=== PATIENT | male | born 1960 | race Caucasian/White ===

== ENCOUNTER 2021-10-21 17:19 | Inpatient (IN) ==
[2021-10-21 19:21] LABS: Basophils % 0.4 %; Eosinophils # 0.2 K/mcL (0.0-0.6); Eosinophils % 1.6 %; Hematocrit 38.4 % (37.5-50.1); Hemoglobin 12.4 g/dL (12.9-16.9); Immature Granulocytes % 0.4 % (0-4); Lymphocytes # 1.2 K/mcL (0.6-4.6); Lymphocytes % 13.1 %; Mean Corpuscular HGB Conc 32.3 g/dL (31.6-35.5); Mean Corpuscular Hemoglobin 32.6 pg (28.0-33.3); Mean Corpuscular Volume 101.1 fL (83.0-100.0); Mean Platelet Volume 9.1 fL (9.4-12.4); Monocytes # 0.7 K/mcL (0.0-1.3); Monocytes % 7.2 %; Neutrophils # 7.1 K/mcL (1.6-8.9); Platelet Count 408 K/mcL (140-400); Red Cell Distribution Width 13.2 % (11.5-14.5); Segmented Neutrophils % 77.3 %; White Blood Count 9.2 K/mcL (4.3-11.1)
[2021-10-21 19:54] LABS: Albumin 4.4 g/dL (3.5-5.7); Albumin/Globulin Ratio 1.4 (1.1-2.2); Bilirubin,Total 0.2 mg/dL (0.3-1.0); Calcium 9.5 mg/dL (8.6-10.3); Globulin 3.2 g/dL (2.4-3.5); Magnesium 2.6 mg/dL (1.6-2.6); Total Protein 7.6 g/dL (6.4-8.9)
[2021-10-21] MEDS ORDERED: 0.9 % Sodium Chloride 1,000 ML IVC ONE (20:15)
[2021-10-21] MEDS ORDERED: Insulin Human Regular 10 UNIT in 0.9 % Sodium Chloride 10 ML IV ONE (20:15)
[2021-10-21] MEDS ORDERED: *HR* Dextrose 50 % in Water (Syg) 50 ML SYRINGE IVP ONE (20:15)
[2021-10-21] MEDS ORDERED: Calcium Gluconate 1,000 MG/10 ML VIAL IVP ONE (20:17)
[2021-10-21 20:33] LABS: Bilirubin,Urine Negative (Negative); Blood,Urine Negative (Negative); Clarity,Urine Clear (Clear); Color,Urine Colorless (Yellow); Glucose,Urine (UA) Normal (Normal); Ketones,Urine Negative (Negative); Leukocyte Esterase,Urine Negative (Negative); Nitrite,Urine Negative (Negative); PH,Urine 5.5 pH Units (5.0-8.0); Protein,Urine Trace mg/dL (Neg-Trace); Specific Gravity,Urine 1.016 (1.010-1.025); Urobilinogen,Urine Normal (Normal)
[2021-10-21] MEDS ORDERED: Insulin LISPRO 300 UNITS/3 ML VIAL SUBQ ONE (21:17)
[2021-10-22] MEDS ORDERED: Naloxone 0.4 MG/ML INJ IVP PRN (00:15)
[2021-10-22] MEDS ORDERED: Acetaminophen 325 MG TABLET PO PRN (00:15)
[2021-10-22] MEDS ORDERED: Ondansetron 4 MG/2 ML VIAL IVP PRN (00:15)
[2021-10-22] MEDS ORDERED: 0.9 % Sodium Chloride 1,000 ML IVC ONE ×2 (01:02→03:32)
[2021-10-22 01:48] LABS: Calcium 9.4 mg/dL (8.6-10.3); Potassium 5.2 mEq/L (3.5-5.1)
[2021-10-22 02:48] LABS: Amphetamine Screen,Urine Negative ng/mL (Cutoff=1000); Barbiturate Screen,Urine Negative ng/mL (Cutoff=200); Benzodiazepines Screen,Urine Negative ng/mL (Cutoff=200); Cannabinoid Screen,Urine Positive ng/mL (Cutoff = 50); Cocaine Screen,Urine Negative ng/mL (Cutoff= 300); Opiate Screen,Urine Negative ng/mL (Cutoff=300); Phencyclidine Screen,Urine Negative ng/mL (Cutoff=25)
[2021-10-22] MEDS ORDERED: Nicotine 21 MG PATCH.TD24 TD PRN (03:35)
[2021-10-22 07:24] LABS: Basophils # 0.1 K/mcL (0.0-0.2); Basophils % 0.6 %; Eosinophils # 0.2 K/mcL (0.0-0.6); Eosinophils % 1.8 %; Hematocrit 33.3 % (37.5-50.1); Hemoglobin 10.7 g/dL (12.9-16.9); Immature Granulocytes % 0.5 % (0-4); Lymphocytes # 1.6 K/mcL (0.6-4.6); Lymphocytes % 18.1 %; Mean Corpuscular HGB Conc 32.1 g/dL (31.6-35.5); Mean Corpuscular Hemoglobin 32.5 pg (28.0-33.3); Mean Corpuscular Volume 101.2 fL (83.0-100.0); Mean Platelet Volume 8.8 fL (9.4-12.4); Monocytes # 0.7 K/mcL (0.0-1.3); Monocytes % 7.9 %; Neutrophils # 6.1 K/mcL (1.6-8.9); Platelet Count 346 K/mcL (140-400); Red Blood Count 3.29 M/mcL (4.19-5.50); Red Cell Distribution Width 13.1 % (11.5-14.5); Segmented Neutrophils % 71.1 %; White Blood Count 8.6 K/mcL (4.3-11.1)
[2021-10-22 07:31] LABS: INR 1.1; Prothrombin Time 11.8 Seconds (9.4-12.1)
[2021-10-22 07:58] LABS: Albumin 3.6 g/dL (3.5-5.7); Albumin/Globulin Ratio 1.5 (1.1-2.2); Bilirubin,Total 0.3 mg/dL (0.3-1.0); Calcium 8.9 mg/dL (8.6-10.3); Globulin 2.4 g/dL (2.4-3.5); Phosphorous 4.8 mg/dL (2.7-4.5); Potassium 5.6 mEq/L (3.5-5.1)
[2021-10-22] MEDS ORDERED: 0.9 % Sodium Chloride 1,000 ML IVC SCH (08:15)
[2021-10-22] MEDS ORDERED: Ringers Solution, Lactated 1,000 ML IVC SCH (13:30)
[2021-10-22 13:31] LABS: Calcium 9.3 mg/dL (8.6-10.3); Potassium 5.6 mEq/L (3.5-5.1)
[2021-10-22] MEDS: SODIUM ZIRCONIUM CYCLOSILICATE 5 GM POWD.PACK PO SCH (14:30)
[2021-10-22] MEDS ORDERED: Aspirin Enteric Coated 325 MG Tablet PO ONE (21:01)
[2021-10-23 05:41] LABS: Basophils # 0.1 K/mcL (0.0-0.2); Basophils % 0.7 %; Eosinophils # 0.3 K/mcL (0.0-0.6); Eosinophils % 3.6 %; Hematocrit 34.5 % (37.5-50.1); Immature Granulocytes % 0.4 % (0-4); Lymphocytes # 1.6 K/mcL (0.6-4.6); Lymphocytes % 21.8 %; Mean Corpuscular HGB Conc 31.9 g/dL (31.6-35.5); Mean Corpuscular Hemoglobin 31.8 pg (28.0-33.3); Mean Corpuscular Volume 99.7 fL (83.0-100.0); Mean Platelet Volume 8.7 fL (9.4-12.4); Monocytes # 0.7 K/mcL (0.0-1.3); Neutrophils # 4.6 K/mcL (1.6-8.9); Platelet Count 332 K/mcL (140-400); Red Blood Count 3.46 M/mcL (4.19-5.50); Red Cell Distribution Width 12.9 % (11.5-14.5); Segmented Neutrophils % 63.5 %; White Blood Count 7.3 K/mcL (4.3-11.1)
[2021-10-23 06:37] LABS: Calcium 9.1 mg/dL (8.6-10.3); Potassium 5.2 mEq/L (3.5-5.1)
[2021-10-23 07:27] LABS: Estimated Average Glucose 140 mg/dl; Hemoglobin A1C 6.5 %
[2021-10-23] MEDS: SODIUM ZIRCONIUM CYCLOSILICATE 5 GM POWD.PACK PO SCH (08:42)
[2021-10-23] MEDS: Nicotine 21 MG PATCH.TD24 TD SCH (08:43)
[2021-10-23] MEDS: Aspirin Enteric Coated 81 MG Tablet PO SCH (08:43)
[2021-10-23] MEDS: Ringers Solution, Lactated 1,000 ML IVC SCH ×2 (09:35→17:25)
[2021-10-23] MEDS ORDERED: Perflutren Lipid Microsphere 1.3 ML in 0.9 % Sodium Chloride 8.7 ML IVP PRN (12:02)
[2021-10-23] MEDS: Melatonin 3 MG TABLET PO PRN (21:19)
[2021-10-24 05:39] LABS: Basophils % 0.4 %; Eosinophils # 0.3 K/mcL (0.0-0.6); Hematocrit 33.8 % (37.5-50.1); Immature Granulocytes % 0.3 % (0-4); Lymphocytes # 2.1 K/mcL (0.6-4.6); Lymphocytes % 30.1 %; Mean Corpuscular HGB Conc 32.5 g/dL (31.6-35.5); Mean Corpuscular Volume 98.3 fL (83.0-100.0); Mean Platelet Volume 8.5 fL (9.4-12.4); Monocytes # 0.6 K/mcL (0.0-1.3); Monocytes % 8.9 %; Neutrophils # 3.8 K/mcL (1.6-8.9); Platelet Count 319 K/mcL (140-400); Red Blood Count 3.44 M/mcL (4.19-5.50); Red Cell Distribution Width 12.8 % (11.5-14.5); Segmented Neutrophils % 55.3 %; White Blood Count 6.8 K/mcL (4.3-11.1)
[2021-10-24 06:05] LABS: BUN/Creatinine Ratio 31 (6-26); Blood Urea Nitrogen 44 mg/dL (6-20); Calcium 8.7 mg/dL (8.6-10.3); Carbon Dioxide 20 mEq/L (23-29); Chloride 110 mEq/L (98-107); Glucose 89 mg/dL (70-105); Osmolality,Calculated 295 (280-300); Potassium 4.6 mEq/L (3.5-5.1); Sodium 137 mEq/L (136-145); eGFR For African Americans > 60 (> 60); eGFR For Non-African Americans 51 (> 60)
[2021-10-24] MEDS: Nicotine 21 MG PATCH.TD24 TD SCH (08:49)
[2021-10-24] MEDS: SODIUM ZIRCONIUM CYCLOSILICATE 5 GM POWD.PACK PO SCH (09:31)
[2021-10-24] MEDS: Aspirin Enteric Coated 81 MG Tablet PO SCH (09:31)
[2021-10-24] MEDS: Ringers Solution, Lactated 1,000 ML IVC SCH (09:37)
[2021-10-24] MEDS: Melatonin 3 MG TABLET PO PRN (21:27)
[2021-10-25] MEDS: Ringers Solution, Lactated 1,000 ML IVC SCH ×2 (00:45→15:51)
[2021-10-25 07:34] LABS: Calcium 7.6 mg/dL (8.6-10.3); Potassium 4.5 mEq/L (3.5-5.1)
[2021-10-25] MEDS: Nicotine 21 MG PATCH.TD24 TD SCH (09:52)
[2021-10-25] MEDS: Aspirin Enteric Coated 81 MG Tablet PO SCH (10:22)
[2021-10-25 10:41] VITALS: O2SAT 98
[2021-10-25 15:25] VITALS: BP 113/71; PULSE 72; TEMP 99.7
== END 2021-10-25 17:11 | disposition home or self-care (01) | DRG 64 ==
LOC: EMEROOARM 17:19 → 2ANU 17:19 → SUATTDRO 21:59 → 2ANU 23:15
PROVIDERS: ADMIT Internal Medicine; ATTEND Family Medicine

== ENCOUNTER 2022-01-10 03:16 | Inpatient (IN) ==
[2022-01-10 03:55] LABS: ABG Base Excess -12 mEq/L (-2 to 3); ABG HCO3 21 mEq/L (21-27); ABG Oxygen Saturation 100 % (95-98); ABG PCO2 88 mmHg (35-45); ABG PH 6.99 pH Units (7.32-7.45); ABG PO2 382 mmHg (85-104); ABG TCO2 24 mEq/L (20-26); Blood Gas Pressure Support 7 cm H2O
[2022-01-10 04:21] LABS: ABG Base Excess -9 mEq/L (-2 to 3); ABG HCO3 21 mEq/L (21-27); ABG Oxygen Saturation 89 % (95-98); ABG PCO2 64 mmHg (35-45); ABG PH 7.12 pH Units (7.32-7.45); ABG PO2 76 mmHg (85-104); ABG TCO2 23 mEq/L (20-26); Blood Gas Modality AVAPS; Blood Gas VT 500 cc
[2022-01-10 04:25] LABS: Calcium 9.8 mg/dL (8.6-10.3); Magnesium 2.6 mg/dL (1.6-2.6); Potassium 3.9 mEq/L (3.5-5.1)
[2022-01-10 04:26] LABS: Troponin I 0.03 ng/mL (< 0.04)
[2022-01-10 04:31] LABS: Basophils # 0.1 K/mcL (0.0-0.2); Basophils % 0.6 %; Eosinophils # 0.7 K/mcL (0.0-0.6); Eosinophils % 3.8 %; Hematocrit 42.4 % (37.5-50.1); Hemoglobin 13.2 g/dL (12.9-16.9); Immature Granulocytes % 0.9 % (0-4); Lymphocytes # 4.2 K/mcL (0.6-4.6); Lymphocytes % 23.2 %; Mean Corpuscular HGB Conc 31.1 g/dL (31.6-35.5); Mean Corpuscular Hemoglobin 32.3 pg (28.0-33.3); Mean Corpuscular Volume 103.7 fL (83.0-100.0); Mean Platelet Volume 9.1 fL (9.4-12.4); Monocytes # 0.7 K/mcL (0.0-1.3); Monocytes % 3.9 %; Neutrophils # 12.2 K/mcL (1.6-8.9); Platelet Count 313 K/mcL (140-400); Red Blood Count 4.09 M/mcL (4.19-5.50); Red Cell Distribution Width 14.6 % (11.5-14.5); Segmented Neutrophils % 67.6 %
[2022-01-10 04:55] LABS: Platelet Estimate Normal (Normal); Reactive Lymphocytes Present (Not Present)
[2022-01-10 05:12] LABS: ABG Base Excess -7 mEq/L (-2 to 3); ABG HCO3 21 mEq/L (21-27); ABG Oxygen Saturation 95 % (95-98); ABG PCO2 47 mmHg (35-45); ABG PH 7.25 pH Units (7.32-7.45); ABG PO2 87 mmHg (85-104); ABG TCO2 22 mEq/L (20-26); Blood Gas VT 500 cc
[2022-01-10] MEDS ORDERED: Naloxone 0.4 MG/ML INJ IVP PRN (05:49)
[2022-01-10] MEDS ORDERED: Ondansetron ODT 4 MG TAB.RAPDIS SL PRN (05:49)
[2022-01-10] MEDS ORDERED: Melatonin 3 MG TABLET PO PRN (05:49)
[2022-01-10] MEDS: Furosemide 40 MG/4 ML VIAL IVP SCH ×2 (06:18→19:41)
[2022-01-10] MEDS: Ipratropium/Albuterol Neb 3 ML IH SCH ×4 (07:43→21:10)
[2022-01-10] MEDS ORDERED: Metoprolol XL (24 HR) Succ 50 MG TAB.ER.24H PO SCH (09:00)
[2022-01-10] MEDS: Nicotine 7 MG PATCH.TD24 TD SCH (09:41)
[2022-01-10] MEDS: Aspirin Enteric Coated 81 MG Tablet PO SCH (09:43)
[2022-01-10] MEDS: Spironolactone 12.5 MG TABLET PO SCH (09:43)
[2022-01-10] MEDS: Metoprolol XL (24 HR) Succ 25 MG TAB.ER.24H PO SCH (09:44)
[2022-01-10] MEDS: MethylPREDNISolone 40 MG/ML VIAL IVP SCH ×4 (09:45→23:21)
[2022-01-10] MEDS ORDERED: levoFLOXacin 750 MG TABLET PO ONE (14:12)
[2022-01-10] MEDS: *HR* Heparin 5,000 UNIT/ML VIAL SQ SCH (19:47)
[2022-01-11] MEDS ORDERED: Furosemide 20 MG/2 ML VIAL IVP ONE ×2 (00:58→01:06)
[2022-01-11 01:12] LABS: ABG Base Excess -3 mEq/L (-2 to 3); ABG HCO3 21 mEq/L (21-27); ABG Oxygen Saturation 98 % (95-98); ABG PCO2 33 mmHg (35-45); ABG PO2 101 mmHg (85-104); ABG TCO2 22 mEq/L (20-26)
[2022-01-11] MEDS ORDERED: *HR* Metoprolol 5 MG/5 ML VIAL IVP ONE ×2 (01:12→01:20)
[2022-01-11] MEDS ORDERED: Iopamidol - 370 500 ML MLS IVP ONE ×2 (01:12→01:38)
[2022-01-11] MEDS ORDERED: Levalbuterol Neb 0.63 MG/3 ML IH PRN (01:22)
[2022-01-11] MEDS ORDERED: Ipratropium Neb 0.5 MG NEBULIZER IH PRN (01:22)
[2022-01-11 02:42] LABS: Basophils % 0.1 %; Eosinophils % 0.1 %; Hemoglobin 11.9 g/dL (12.9-16.9); Immature Granulocytes % 0.7 % (0-4); Lymphocytes # 0.7 K/mcL (0.6-4.6); Lymphocytes % 4.2 %; Mean Corpuscular HGB Conc 33.1 g/dL (31.6-35.5); Mean Corpuscular Hemoglobin 32.6 pg (28.0-33.3); Mean Corpuscular Volume 98.6 fL (83.0-100.0); Mean Platelet Volume 9.5 fL (9.4-12.4); Monocytes # 0.5 K/mcL (0.0-1.3); Neutrophils # 14.9 K/mcL (1.6-8.9); Platelet Count 253 K/mcL (140-400); Red Blood Count 3.65 M/mcL (4.19-5.50); Red Cell Distribution Width 14.7 % (11.5-14.5); Segmented Neutrophils % 91.9 %; White Blood Count 16.2 K/mcL (4.3-11.1)
[2022-01-11 03:02] LABS: Calcium 8.9 mg/dL (8.6-10.3); Phosphorous 3.3 mg/dL (2.7-4.5); Troponin I 0.16 ng/mL (< 0.04)
[2022-01-11] MEDS: *HR* Heparin 5,000 UNIT/ML VIAL SQ SCH ×2 (05:41→17:59)
[2022-01-11] MEDS ORDERED: *HR* Labetalol 20 MG/4 ML SYRINGE IVP PRN (07:32)
[2022-01-11] MEDS: Furosemide 40 MG/4 ML VIAL IVP SCH ×2 (08:51→18:02)
[2022-01-11] MEDS: Metoprolol XL (24 HR) Succ 25 MG TAB.ER.24H PO SCH (08:53)
[2022-01-11] MEDS: Aspirin Enteric Coated 81 MG Tablet PO SCH (08:53)
[2022-01-11] MEDS: Spironolactone 12.5 MG TABLET PO SCH (08:53)
[2022-01-11] MEDS: levoFLOXacin 750 MG TABLET PO SCH (08:53)
[2022-01-11] MEDS: MethylPREDNISolone 40 MG/ML VIAL IVP SCH ×2 (08:55→18:03)
[2022-01-11] MEDS: Nicotine 7 MG PATCH.TD24 TD SCH (08:55)
[2022-01-11 10:22] LABS: Bilirubin,Urine Negative (Negative); Blood,Urine Large (Negative); Clarity,Urine Clear (Clear); Color,Urine Colorless (Yellow); Glucose,Urine (UA) Normal (Normal); Ketones,Urine Negative (Negative); Leukocyte Esterase,Urine Negative (Negative); Mucus,Urine Few per lpf (None-Few); Nitrite,Urine Negative (Negative); Protein,Urine Negative (Neg-Trace); RBC,Urine 50-100 per hpf (0-3); Specific Gravity,Urine 1.009 (1.010-1.025); Urobilinogen,Urine Normal (Normal); WBC,Urine 0-3 per hpf (0-3)
[2022-01-11 14:01] LABS: Influenza A PCR Negative (Negative); Influenza B PCR Negative (Negative); Resp. Syncytial Virus PCR Negative (Negative); SARS-CoV-2 by PCR (In House) Negative (Negative)
[2022-01-11] MEDS: Budesonide/Formoterol 160/4.5 1 PUFF INH IH SCH (22:14)
[2022-01-12 01:36] LABS: Basophils % 0.1 %; Hematocrit 37.2 % (37.5-50.1); Hemoglobin 12.4 g/dL (12.9-16.9); Immature Granulocytes % 0.6 % (0-4); Lymphocytes # 0.8 K/mcL (0.6-4.6); Lymphocytes % 5.9 %; Mean Corpuscular HGB Conc 33.3 g/dL (31.6-35.5); Mean Corpuscular Hemoglobin 32.4 pg (28.0-33.3); Mean Corpuscular Volume 97.1 fL (83.0-100.0); Mean Platelet Volume 9.4 fL (9.4-12.4); Monocytes # 0.6 K/mcL (0.0-1.3); Monocytes % 4.7 %; Neutrophils # 11.5 K/mcL (1.6-8.9); Platelet Count 296 K/mcL (140-400); Red Blood Count 3.83 M/mcL (4.19-5.50); Red Cell Distribution Width 14.8 % (11.5-14.5); Segmented Neutrophils % 88.7 %
[2022-01-12 01:56] LABS: Magnesium 2.2 mg/dL (1.6-2.6); Phosphorous 2.9 mg/dL (2.7-4.5); Potassium 3.9 mEq/L (3.5-5.1)
[2022-01-12] MEDS: MethylPREDNISolone 40 MG/ML VIAL IVP SCH (05:15)
[2022-01-12] MEDS: *HR* Heparin 5,000 UNIT/ML VIAL SQ SCH (05:15)
[2022-01-12 05:51] LABS: ABG Base Excess 0 mEq/L (-2 to 3); ABG HCO3 24 mEq/L (21-27); ABG Oxygen Saturation 97 % (95-98); ABG PCO2 34 mmHg (35-45); ABG PH 7.45 pH Units (7.32-7.45); ABG PO2 82 mmHg (85-104); ABG TCO2 25 mEq/L (20-26)
[2022-01-12] MEDS ORDERED: D5% in Water 1,000 ML IVC PRN (07:19)
[2022-01-12] MEDS ORDERED: Dextrose Gel 15 GM/37.5 ML TUBE PO PRN ×2 (07:19)
[2022-01-12] MEDS ORDERED: *HR* Dextrose 50 % in Water (Syg) 50 ML SYRINGE IVP PRN (07:19)
[2022-01-12] MEDS: Budesonide/Formoterol 160/4.5 1 PUFF INH IH SCH ×2 (07:51→21:41)
[2022-01-12] MEDS: Aspirin Enteric Coated 81 MG Tablet PO SCH (08:39)
[2022-01-12] MEDS: Spironolactone 12.5 MG TABLET PO SCH (08:39)
[2022-01-12] MEDS: levoFLOXacin 750 MG TABLET PO SCH (08:39)
[2022-01-12] MEDS: Metoprolol XL (24 HR) Succ 25 MG TAB.ER.24H PO SCH (08:39)
[2022-01-12] MEDS: Nicotine 7 MG PATCH.TD24 TD SCH (08:40)
[2022-01-12] MEDS: Insulin LISPRO 300 UNITS/3 ML VIAL SUBQ SCH ×3 (08:43→16:07)
[2022-01-12] MEDS ORDERED: *HR* Heparin 5,000 UNIT/ML VIAL IVP ONE (13:08)
[2022-01-12] MEDS ORDERED: *HR* Heparin 5,000 UNIT/ML VIAL IVP PRN (13:08)
[2022-01-12] MEDS ORDERED: Heparin 25,000UNIT/250ML 1/2NS 25,000 UNIT/250 ML IV.SOLN IVC SCH (13:15)
[2022-01-12 13:37] LABS: Hematocrit 37.2 % (37.5-50.1); Hemoglobin 12.4 g/dL (12.9-16.9); Mean Corpuscular HGB Conc 33.3 g/dL (31.6-35.5); Mean Corpuscular Hemoglobin 32.4 pg (28.0-33.3); Mean Corpuscular Volume 97.1 fL (83.0-100.0); Mean Platelet Volume 9.2 fL (9.4-12.4); Platelet Count 310 K/mcL (140-400); Red Blood Count 3.83 M/mcL (4.19-5.50); Red Cell Distribution Width 14.6 % (11.5-14.5); White Blood Count 12.6 K/mcL (4.3-11.1)
[2022-01-12 13:46] LABS: Heparin anti-factor XA UFH < 0.04 IU/mL (0.30-0.70)
[2022-01-12 13:47] LABS: Prothrombin Time 11.5 Seconds (9.4-12.1)
[2022-01-12 20:06] LABS: Hemoglobin 12.9 g/dL (12.9-16.9); Red Cell Distribution Width 14.6 % (11.5-14.5)
[2022-01-12 20:12] LABS: Hematocrit 38.6 % (37.5-50.1); Mean Corpuscular HGB Conc 33.4 g/dL (31.6-35.5); Mean Corpuscular Hemoglobin 32.5 pg (28.0-33.3); Mean Corpuscular Volume 97.2 fL (83.0-100.0); Platelet Count 306 K/mcL (140-400); Red Blood Count 3.97 M/mcL (4.19-5.50); White Blood Count 16.8 K/mcL (4.3-11.1)
[2022-01-12 22:02] LABS: Troponin I 0.04 ng/mL (< 0.04)
[2022-01-12] MEDS: *HR* Heparin 5,000 UNIT/ML VIAL IVP PRN (22:24)
[2022-01-12 22:48] LABS: A.calcoaceticus-baumannii cplx Not Detected (Not Detect); Enterococcus faecalis by PCR Not Detected (Not Detect); Enterococcus faecium by PCR Not Detected (Not Detect); Staph epidermidis by PCR Not Detected (Not Detect); Staph lugdunensis by PCR Not Detected (Not Detect); Staphylococcus aureus by PCR Not Detected (Not Detect); Staphylococcus by PCR Not Detected (Not Detect); Streptococcus agalactiae(B)PCR Not Detected (Not Detect); Streptococcus by PCR Not Detected (Not Detect); Streptococcus pneumoniae PCR Not Detected (Not Detect); Streptococcus pyogenes (A) PCR Not Detected (Not Detect)
[2022-01-12 22:50] LABS: Bacteroides fragilis by PCR Not Detected (Not Detect); Candida albicans by PCR Not Detected (Not Detect); Candida auris by PCR Not Detected (Not Detect); Candida glabrata by PCR Not Detected (Not Detect); Candida krusei by PCR Not Detected (Not Detect); Candida parapsilosis by PCR Not Detected (Not Detect); Candida tropicalis by PCR Not Detected (Not Detect); Crypto. neoformans/gattii PCR Not Detected (Not Detect); Enterobacter cloacae Cmplx PCR Not Detected (Not Detect); Enterobacterales by PCR Not Detected (Not Detect); Escherichia coli by PCR Not Detected (Not Detect); Klebs. pneumoniae group by PCR Not Detected (Not Detect); Klebsiella aerogenes by PCR Not Detected (Not Detect); Klebsiella oxytoca by PCR Not Detected (Not Detect); Proteus by PCR Not Detected (Not Detect); Pseudomonas aeruginosa by PCR Not Detected (Not Detect); Salmonella species by PCR Not Detected (Not Detect); Serratia marcescens by PCR Not Detected (Not Detect); Stenotrophomonas maltophilia Not Detected (Not Detect)
[2022-01-12 23:37] LABS: Calcium 8.7 mg/dL (8.6-10.3); Magnesium 2.5 mg/dL (1.6-2.6); Phosphorous 2.7 mg/dL (2.7-4.5); Potassium 3.9 mEq/L (3.5-5.1)
[2022-01-13 06:48] LABS: Basophils % 0.1 %; Eosinophils # 0.1 K/mcL (0.0-0.6); Eosinophils % 0.5 %; Hematocrit 42.2 % (37.5-50.1); Hemoglobin 13.7 g/dL (12.9-16.9); Immature Granulocytes % 0.7 % (0-4); Lymphocytes # 3.6 K/mcL (0.6-4.6); Mean Corpuscular HGB Conc 32.5 g/dL (31.6-35.5); Mean Corpuscular Hemoglobin 31.8 pg (28.0-33.3); Mean Corpuscular Volume 97.9 fL (83.0-100.0); Mean Platelet Volume 9.7 fL (9.4-12.4); Monocytes # 1.5 K/mcL (0.0-1.3); Neutrophils # 9.7 K/mcL (1.6-8.9); Platelet Count 316 K/mcL (140-400); Red Blood Count 4.31 M/mcL (4.19-5.50); Red Cell Distribution Width 14.6 % (11.5-14.5); Segmented Neutrophils % 64.7 %; White Blood Count 15.1 K/mcL (4.3-11.1)
[2022-01-13] MEDS: *HR* Heparin 5,000 UNIT/ML VIAL IVP PRN (07:01)
[2022-01-13 07:13] LABS: Calcium 8.7 mg/dL (8.6-10.3); Magnesium 2.4 mg/dL (1.6-2.6); Phosphorous 2.6 mg/dL (2.7-4.5); Potassium 3.6 mEq/L (3.5-5.1)
[2022-01-13] MEDS: Budesonide/Formoterol 160/4.5 1 PUFF INH IH SCH ×2 (07:30→21:23)
[2022-01-13] MEDS: Insulin LISPRO 300 UNITS/3 ML VIAL SUBQ SCH ×3 (08:46→16:57)
[2022-01-13] MEDS: Spironolactone 12.5 MG TABLET PO SCH (08:47)
[2022-01-13] MEDS: Nicotine 7 MG PATCH.TD24 TD SCH (08:47)
[2022-01-13] MEDS: Aspirin Enteric Coated 81 MG Tablet PO SCH (08:50)
[2022-01-13] MEDS: predniSONE 20 MG TABLET PO SCH (08:50)
[2022-01-13] MEDS ORDERED: 0.9 % Sodium Chloride 2,000 ML ONE (12:13)
[2022-01-13] MEDS ORDERED: Nitroglycerin 1,000 MCG/5 ML VIAL IV ONE (12:13)
[2022-01-13] MEDS ORDERED: Iopamidol - 370 200 ML INFUS..BTL ONE (12:13)
[2022-01-13] MEDS ORDERED: Heparin 1,000 UNITS/500 mL 500 ML ONE (12:13)
[2022-01-13] MEDS ORDERED: *HR* Heparin 10,000 UNIT/10 ML VIAL ONE (12:13)
[2022-01-13] MEDS: levoFLOXacin 750 MG TABLET PO SCH (12:29)
[2022-01-13] MEDS ORDERED: *HR* FentaNYL (PF) 100 MCG/2 ML VIAL ONE (12:39)
[2022-01-13] MEDS ORDERED: *HR* Midazolam HCl 2 MG/2 ML VIAL ONE (12:39)
[2022-01-13] MEDS ORDERED: *HR* Atropine Sulfate 1 MG/10 ML SYRINGE ONE (12:54)
[2022-01-13] MEDS ORDERED: levoFLOXacin 750 MG TABLET PO SCH (13:30)
[2022-01-13] MEDS ORDERED: Iopamidol - 370 500 ML MLS IVP ONE (13:32)
[2022-01-14] MEDS: Budesonide/Formoterol 160/4.5 1 PUFF INH IH SCH ×2 (07:49→20:41)
[2022-01-14] MEDS: Insulin LISPRO 300 UNITS/3 ML VIAL SUBQ SCH ×3 (08:51→17:06)
[2022-01-14] MEDS: predniSONE 20 MG TABLET PO SCH (08:52)
[2022-01-14] MEDS: Nicotine 7 MG PATCH.TD24 TD SCH (08:52)
[2022-01-14] MEDS: Aspirin Enteric Coated 81 MG Tablet PO SCH (08:52)
[2022-01-14] MEDS: levoFLOXacin 750 MG TABLET PO SCH (08:52)
[2022-01-14] MEDS: Spironolactone 12.5 MG TABLET PO SCH (08:52)
[2022-01-14] MEDS ORDERED: levoFLOXacin 750 MG TABLET PO SCH (09:00)
[2022-01-14] MEDS ORDERED: Furosemide 40 MG TABLET PO SCH (09:00)
[2022-01-14] MEDS: Metoprolol XL (24 HR) Succ 25 MG TAB.ER.24H PO SCH (10:12)
[2022-01-14 11:11] LABS: Calcium 8.3 mg/dL (8.6-10.3); Potassium 3.4 mEq/L (3.5-5.1)
[2022-01-14] MEDS: Albumin 25% 25gram/100mL 25 GM/100 ML IV.SOLN IVPB SCH ×2 (17:07→23:40)
[2022-01-15] MEDS: Insulin LISPRO 300 UNITS/3 ML VIAL SUBQ SCH ×3 (07:42→19:05)
[2022-01-15] MEDS: Budesonide/Formoterol 160/4.5 1 PUFF INH IH SCH ×2 (07:43→20:51)
[2022-01-15 08:13] LABS: Calcium 8.8 mg/dL (8.6-10.3)
[2022-01-15] MEDS ORDERED: levoFLOXacin 750 MG TABLET PO SCH (09:00)
[2022-01-15 09:17] LABS: Basophils % 0.2 %; Eosinophils # 0.2 K/mcL (0.0-0.6); Eosinophils % 1.9 %; Hematocrit 33.7 % (37.5-50.1); Immature Granulocytes % 0.8 % (0-4); Lymphocytes # 2.8 K/mcL (0.6-4.6); Lymphocytes % 27.7 %; Mean Corpuscular HGB Conc 33.5 g/dL (31.6-35.5); Mean Corpuscular Hemoglobin 32.5 pg (28.0-33.3); Mean Corpuscular Volume 96.8 fL (83.0-100.0); Mean Platelet Volume 8.8 fL (9.4-12.4); Monocytes # 1.1 K/mcL (0.0-1.3); Monocytes % 10.3 %; Platelet Count 272 K/mcL (140-400); Red Blood Count 3.48 M/mcL (4.19-5.50); Red Cell Distribution Width 14.6 % (11.5-14.5); Segmented Neutrophils % 59.1 %; White Blood Count 10.2 K/mcL (4.3-11.1)
[2022-01-15 09:18] LABS: Hemoglobin 11.3 g/dL (12.9-16.9)
[2022-01-15] MEDS: Albumin 25% 25gram/100mL 25 GM/100 ML IV.SOLN IVPB SCH ×2 (09:31→15:29)
[2022-01-15] MEDS: Metoprolol XL (24 HR) Succ 25 MG TAB.ER.24H PO SCH (09:33)
[2022-01-15] MEDS: Furosemide 40 MG TABLET PO SCH (09:33)
[2022-01-15] MEDS: predniSONE 20 MG TABLET PO SCH (09:33)
[2022-01-15] MEDS: Aspirin Enteric Coated 81 MG Tablet PO SCH (09:33)
[2022-01-15] MEDS ORDERED: 0.9 % Sodium Chloride 1,000 ML ONE ×2 (12:23→12:30)
[2022-01-15] MEDS ORDERED: Nitroglycerin 1,000 MCG/5 ML VIAL IV ONE (12:23)
[2022-01-15] MEDS ORDERED: Iopamidol - 370 200 ML INFUS..BTL ONE (12:23)
[2022-01-15] MEDS ORDERED: Heparin 1,000 UNITS/500 mL 500 ML ONE (12:23)
[2022-01-15] MEDS ORDERED: *HR* Heparin 10,000 UNIT/10 ML VIAL ONE (12:23)
[2022-01-15] MEDS ORDERED: *HR* FentaNYL (PF) 100 MCG/2 ML VIAL ONE (13:23)
[2022-01-15] MEDS ORDERED: *HR* Midazolam HCl 2 MG/2 ML VIAL ONE (13:24)
[2022-01-15] MEDS: Nicotine 7 MG PATCH.TD24 TD SCH (15:29)
[2022-01-15] MEDS ORDERED: Adenosine 90 MG/30 ML MLS IV ONE (17:29)
[2022-01-15] MEDS ORDERED: Albumin Human 5% 12.5 GM/250 ML IV.SOLN IVC SCH (23:45)
[2022-01-16 05:59] LABS: Calcium 8.7 mg/dL (8.6-10.3); Phosphorous 2.2 mg/dL (2.7-4.5); Potassium 3.8 mEq/L (3.5-5.1)
[2022-01-16] MEDS: Insulin LISPRO 300 UNITS/3 ML VIAL SUBQ SCH ×3 (07:22→16:53)
[2022-01-16] MEDS: Budesonide/Formoterol 160/4.5 1 PUFF INH IH SCH (07:31)
[2022-01-16] MEDS: Nicotine 7 MG PATCH.TD24 TD SCH (08:23)
[2022-01-16] MEDS: Furosemide 40 MG TABLET PO SCH (08:24)
[2022-01-16] MEDS: Metoprolol XL (24 HR) Succ 25 MG TAB.ER.24H PO SCH (08:24)
[2022-01-16] MEDS: Aspirin Enteric Coated 81 MG Tablet PO SCH (08:24)
[2022-01-16] MEDS ORDERED: levoFLOXacin 750 MG TABLET PO SCH (09:00)
[2022-01-16 11:06] VITALS: BP 117/75; PULSE 83; TEMP 98.4; O2SAT 94
== END 2022-01-16 17:30 | disposition home or self-care (01) | DRG 280 ==
LOC: SUATTDRO → EMEROOARM 03:16 → 2NENU 15:30 → SUATTDRO 15:30 → 2NENU 15:32
PROVIDERS: ADMIT Internal Medicine; ATTEND Pharmacist